=== PATIENT | male | born 2005 | race Caucasian/White ===

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

== ENCOUNTER 2023-03-13 17:34 | Emergency (ER) | payer OTHER ==
[~2023-03-13] VITALS: Ht 162.5 cm; Wt 77.1 kg
[~2023-03-13 17:34] MED LIST changes: +Motrin,Rufen400 MG PO
[2023-03-13] MEDS ORDERED: CYCLOBENZAPRINE5 M3 PO (18:49)
[2023-03-13] MEDS ORDERED: NAPROXEN250 MG PO (18:49)
== END 2023-03-13 20:07 | disposition home or self-care (01) ==
LOC: ED 17:34
DX: S39.012A Strain of muscle, fascia and tendon of lower back, initial encounter (principal); Z91.012 Allergy to eggs; X58.XXXA Exposure to other specified factors, initial encounter; Y93.89 Activity, other specified; Y92.89 Other specified places as the place of occurrence of the external cause; Y99.8 Other external cause status